=== PATIENT | female | born 1960 | race Caucasian/White ===

== ENCOUNTER 2024-02-05 09:07 | Outpatient (CLI) | payer BC | END 2024-02-05 09:08 | disposition home or self-care (01) | LOC: CSHRAD 09:07 | PROVIDERS: ATTEND Nurse Practitioner | DX: I50.22 Chronic systolic (congestive) heart failure (principal); I42.8 Other cardiomyopathies; Z95.810 Presence of automatic (implantable) cardiac defibrillator; R06.02 Shortness of breath | CPT/HCPCS: 71046 ==

== ENCOUNTER 2024-02-23 07:35 | Outpatient (CLI) | payer BC ==
[2024-02-23] MEDS ORDERED: Iopamidol 370 76% 100 ML VIAL ONE (13:20)
== END 2024-02-23 07:36 | disposition home or self-care (01) ==
LOC: CSHCT 07:35
PROVIDERS: ATTEND Nurse Practitioner
DX: I50.22 Chronic systolic (congestive) heart failure (principal); R06.02 Shortness of breath; R09.89 Other specified symptoms and signs involving the circulatory and respiratory systems; I51.7 Cardiomegaly
CPT/HCPCS: 71275; 82565; Q9967

== ENCOUNTER 2024-12-05 08:57 | Outpatient (CLI) | payer MEDICARE, OTHER | END 2024-12-05 08:58 | disposition home or self-care (01) | LOC: CSHCP 08:57 | PROVIDERS: ATTEND Internal Medicine | DX: R06.09 Other forms of dyspnea (principal); J44.9 Chronic obstructive pulmonary disease, unspecified | CPT/HCPCS: 94150; 94618; 94726; 94729 ==